=== PATIENT | female | born 1995 | race American Indian/Alaskan Native ===

== ENCOUNTER 2016-08-21 13:11 | Emergency (ER) | payer SELFPAY ==
[2016-08-21 13:29] VITALS: BP 123/75
--- NOTE | 2016-08-21 14:20 | Emergency Department Report ---
ED Female HPI - General Chief complaint: Abdominal Pain Stated complaint: RT SIDE PAIN Time Seen by Provider: 08/21/16 14:05 Source: patient, EMS Mode of arrival: Ambulatory Limitations: No Limitations - History of Present Illness Initial comments: Patient relates having 1 week of dysuria, and frequency. Patient states that this second week she is now developing right lower quadrant pain without fever or chills or nausea vomiting. Patient denies vaginal discharge. Also denies anorexia. MD Complaint: dysuria -: Gradual, week(s) Location: RLQ Quality: cramping, burning Consistency: constant Worsens with: urination Are you Now?: No Associated Symptoms: abdominal pain, dysuria. denies: vaginal discharge, vaginal bleeding, fever/chills, loss of appetite, syncope, weakness - Related Data Home Medications Medication Instructions Recorded Confirmed Last Taken Ferrous Sulfate [Feosol] 325 mg PO BID 06/26/15 06/26/15 06/26/15 Folic Acid [Folvite] 1 mg PO QDAY 06/26/15 06/26/15 06/26/15 Levothyroxine [Synthroid] 150 mcg PO QAM 06/26/15 06/26/15 06/26/15 Previous Rx's Medication Instructions Recorded Last Taken Type Doxycycline [Vibramycin CAP] 100 mg PO BID #14 capsule 06/27/15 Unknown Rx Ibuprofen [Motrin 800 MG tab] 800 mg PO Q8H PRN #30 tablet 06/27/15 Unknown Rx Methylergonovine [Methergine] 0.2 mg PO Q8HR #6 tablet 06/27/15 Unknown Rx Allergies Allergy/AdvReac Type Severity Reaction Status Date / Time No Known Allergies Allergy Unverified 06/26/15 12:45 ED Review of Systems ROS: Stated complaint: RT SIDE PAIN Other details as noted in HPI Constitutional: denies: chills, fever Eyes: denies: eye pain, eye discharge, vision change ENT: denies: ear pain, throat pain Respiratory: denies: cough, shortness of breath, wheezing Cardiovascular: denies: chest pain, palpitations Gastrointestinal: abdominal pain. denies: nausea, vomiting, diarrhea, constipation Genitourinary: urgency, dysuria, frequency. denies: hematuria, discharge, abnormal menses, dyspareunia Musculoskeletal: denies: back pain Skin: denies: rash ED Past Medical Hx - Past Medical History Previous Medical History?: Yes Additional medical history: hypothyroid, scoliosis - Surgical History Past Surgical History?: Yes Additional Surgical History: neck, spine - Social History Smoking Status: Current Some Day Smoker Substance Use Type: None - Medications Home Medications: Home Medications Medication Instructions Recorded Confirmed Last Taken Type Ferrous Sulfate [Feosol] 325 mg PO BID 06/26/15 06/26/15 06/26/15 History Folic Acid [Folvite] 1 mg PO QDAY 06/26/15 06/26/15 06/26/15 History Levothyroxine [Synthroid] 150 mcg PO QAM 06/26/15 06/26/15 06/26/15 History Doxycycline [Vibramycin CAP] 100 mg PO BID #14 capsule 06/27/15 Unknown Rx Ibuprofen [Motrin 800 MG tab] 800 mg PO Q8H PRN #30 tablet 06/27/15 Unknown Rx Methylergonovine [Methergine] 0.2 mg PO Q8HR #6 tablet 06/27/15 Unknown Rx ED Physical Exam - General Limitations: No Limitations General appearance: alert, in no apparent distress - Eye Eye exam: Present: normal appearance, PERRL, EOMI - ENT ENT exam: Present: mucous membranes moist - Neck Neck exam: Present: normal inspection. Absent: tenderness, meningismus, lymphadenopathy - Respiratory Respiratory exam: Absent: respiratory distress - Cardiovascular Cardiovascular Exam: Present: regular rate - GI/Abdominal GI/Abdominal exam: Present: soft, tenderness (mild suprapubic tenderness), normal bowel sounds. Absent: distended, rebound, rigid, pulsatile mass - Back Exam Back exam: Absent: CVA tenderness (R), CVA tenderness (L) - Neurological Exam Neurological exam: Present: alert, oriented X3. Absent: altered ED Course Vital Signs 08/21/16 13:26 Temperature 98.4 F Pulse Rate 81 Respiratory 16 Rate Blood Pressure 123/75 O2 Sat by Pulse 100 Oximetry Critical care attestation.: If time is entered above; I have spent that time in minutes in the direct care of this critically ill patient, excluding procedure time. ED Disposition Clinical Impression: Intrauterine Disposition: DISCHARGED TO HOME OR SELFCARE Is pt being admited?: No Does the pt Need Aspirin: No Condition: Stable Instructions: (ED), Abdominal Pain (ED), Abdominal Pain in (ED) Additional Instructions: You need to follow-up with [facility]. Return to ER for increased pain or bleeding. Referrals: PRIMARY CARE, [Primary Care Provider] - 3-5 Days KOMAL SANCHEZ MD [Staff Physician] - 3-5 Days
[2016-08-21 14:21] LABS: Bilirubin,Urine NEG (Negative); Blood,Urine NEG (Negative); Ketones,Urine NEG (Negative); Leukocyte Esterase,Urine NEG (Negative); Mucus,Urine FEW /HPF; Nitrite,Urine NEG (Negative); Protein,Urine <15 mg/dL mg/dL (Negative); Urobilinogen,Urine < 2.0 mg/dL (<2.0)
--- NOTE | 2016-08-21 17:39 | Ultrasound Report ---
FINAL REPORT PROCEDURE: US OB \T\lt; = 14 WEEKS FETUS TECHNIQUE: Real-time transabdominal and transvaginal sonography of the uterus, placenta, amniotic fluid, adnexa, and fetus was performed with image documentation. Measurements were obtained to determine age/size. M-mode Doppler was used to document heartbeat. C[place] 73154 [place] 7[address]64 HISTORY: pelvic pain COMPARISON: No prior studies are available for comparison. FINDINGS: ADDITIONAL GESTATION: None. Single live intrauterine is seen with a crown-rump length of 1.3 cm corresponding to gestational age of 7 weeks 4 days. Estimated date of delivery based on this measurement is April 05, 2017. heart rate is 158 beats per minute. Subchorionic hemorrhage is seen measuring 0.9 x 0.4 x 2.6 cm. Right ovary measures 3.6 x 1.9 x 4.9 cm. Left ovary measures 1.4 x 2.2 x 2.4 cm. Normal Doppler flow is seen in the ovaries. Minimal free pelvic fluid is seen. IMPRESSION: 1. Single live intrauterine gestation at approximately 7 weeks 4 days 2. EDC by US April 05, 2017 3. Subchorionic hemorrhage is present.
--- NOTE | 2016-08-21 17:40 | Ultrasound Report ---
FINAL REPORT PROCEDURE: US OB TRANSVAGINAL TECHNIQUE: Real-time transabdominal and transvaginal sonography of the uterus, placenta, amniotic fluid, adnexa, and fetus was performed with image documentation. Measurements were obtained to determine age/size. M-mode Doppler was used to document heartbeat. CPT 87608 and 19525 HISTORY: pelvic pain COMPARISON: No prior studies are available for comparison. FINDINGS: ADDITIONAL GESTATION: None. Single live intrauterine is seen with a crown-rump length of 1.3 cm corresponding to gestational age of 7 weeks 4 days. Estimated date of delivery based on this measurement is April 05, 2017. heart rate is 158 beats per minute. Subchorionic hemorrhage is seen measuring 0.9 x 0.4 x 2.6 cm. Right ovary measures 3.6 x 1.9 x 4.9 cm. Left ovary measures 1.4 x 2.2 x 2.4 cm. Normal Doppler flow is seen in the ovaries. Minimal free pelvic fluid is seen. IMPRESSION: 1. Single live intrauterine gestation at approximately 7 weeks 4 days 2. EDC by US April 05, 2017 3. Subchorionic hemorrhage is present.
== END 2016-08-21 21:04 | disposition home or self-care (01) ==
LOC: ED 13:11
DX: O23.41 Unspecified infection of urinary tract in pregnancy, first trimester (principal); R10.31 Right lower quadrant pain; E03.9 Hypothyroidism, unspecified; F17.200 Nicotine dependence, unspecified, uncomplicated; Z3A.00 Weeks of gestation of pregnancy not specified
CPT/HCPCS: 36415; 76801; 76817; 81001; 81025; 84703; 86900; 86901